=== PATIENT | male | born 1990 | race Caucasian/White ===

== ENCOUNTER → 2018-03-01 09:36 | Outpatient (CLI) | payer BC, SELFPAY ==
--- NOTE | 2018-03-01 09:40 | RAD_ITS ---
STUDY: X-RAY - RIGHT SHOULDER REASON FOR EXAM: Male, 27 years old. Strain injury. TECHNIQUE: 3 view(s) of the shoulder. COMPARISON: None. FINDINGS: Normal glenohumeral articulation. Normal acromioclavicular joint. Normal acromion. Normal humeral head and visualized proximal humerus. The soft tissue structures are unremarkable. Normal visualized pulmonary apex. RAD/Shoulder min 2 Views IMPRESSION: Normal x-ray examination of the left shoulder. Electronically Signed: Sree Browne MD at 10:00 EDT , Service support ,
== END ==
PROVIDERS: Family Provider Family Medicine; PCP Family Medicine; Visit Provider Orthopaedic Surgery
DX: M25.511 Pain in right shoulder (principal)
CPT/HCPCS: 73030

== ENCOUNTER → 2018-03-30 10:20 | Outpatient (CLI) | payer BC, SELFPAY ==
--- NOTE | 2018-03-30 10:20 | DT_ITS ---
This patient was seen during an EMR downtime March 29, 2018 - April 05, 2018. This patient may have a combination of paper and electronic documentation or all paper documentation. All documentation is viewable within the e-chart portion of [facility] for each patient visit.
--- NOTE | 2018-03-30 11:00 | RAD_ITS ---
CLINICAL HISTORY: Male, 27 years old. PROCEDURE: ARTHROGRAM - RIGHT SHOULDER RADIATION DOSAGE (If Supplied By Facility): CTDIvol = ( ) mGy, DLP = ( ) mGycm FLUOROSCOPY TIME (if supplied): (0:34) minutes/seconds Number of images obtained: 2 TECHNIQUE: (All elements of maximal sterile barrier technique followed, including US elements as applicable) RAD/Arthrogram Shoulder w/ MRI IMPRESSION: Normal joint capsule. There is no evidence of intra-articular loose bodies. Electronically Signed: Carlito Carlos MD at 13:02 EDT Tel , Service support ,
--- NOTE | 2018-03-30 11:00 | MRI_ITS ---
STUDY: MRI ARTHROGRAM RIGHT SHOULDER REASON FOR EXAM: Male, 27 years old. Pain. TECHNIQUE: Standardized fat and water weighted pulse sequences were obtained in all 3 orthogonal planes following intra-articular administration of contrast. COMPARISON: X-ray March 01, 2018. FINDINGS: Normal supraspinatus tendon. There is infraspinatus tendinosis with tendon thickening, but without a demonstrated tendon tear. Normal subscapularis tendon. Normal teres minor tendon. Normal supraspinatus muscle. Normal infraspinatus muscle. Normal subscapularis muscle. Normal teres minor muscle. Normal glenohumeral articulation. There is a cortical erosion at the insertion of the infraspinatus tendon. Normal biceps labral complex. Normal intracapsular long biceps tendon. Tear of the superior labrum adjacent to the biceps anchor, series 3 images /20 and 09/14. Normal capsulo- ligamentous complex. Normal rotator interval. Normal acromioclavicular articulation. There is a Type II morphology (curved), with a neutral orientation. There is no subacromial-subdeltoid bursal fluid. Normal visualized coracohumeral and coracoacromial ligaments. Normal quadrilateral space. Normal axillary space. Normal deltoid muscle. Normal trapezius muscle. MRI/Upper Ext Jt Only W/Contrast IMPRESSION: SLAP lesion with tear of the superior labrum. No full-thickness rotator cuff tear. Electronically Signed: Daniel Cee MD at 10:52 EDT , Service support ,
== END ==
PROVIDERS: Family Provider Family Medicine; PCP Family Medicine; Visit Provider Orthopaedic Surgery
DX: M75.111 Incomplete rotator cuff tear or rupture of right shoulder, not specified as traumatic (principal); S43.431A Superior glenoid labrum lesion of right shoulder, initial encounter
CPT/HCPCS: 23350; 73222; 77002; A9577; Q9967

== ENCOUNTER 2018-06-29 07:00 | Outpatient (RCR) | payer BC, SELFPAY ==
--- NOTE | 2018-06-01 12:44 | HP.PTEVAL_ITS ---
Patient's Visit Information CARLTON ROCK is a 27 year old M referred to Physical Therapy by Frankie Younger with a diagnosis of SYNOVITIS AND TENOSYNOVITIS ,RIGHT SHOULDER. Date of Evaluation: 06/01/18 Physical Therapist: Dustin Beck PT, - Visit Plan Frequency: 2x /Week Duration: 4 Weeks Plan: postural ex's ,RTC /scapular ex's program open/chain ,throwing mechanics program ,Thoracic moblity programus/cp for pain - Subjective Subjective: This 27 y/o male presents to physical therapy with right shoulder pain . Patient had pain last summer ,but then had a sharp pain throwing 3rd to 2nd base. Patient has been playing 1st base and typical hitting doesnt increase pain. During regular activity runnning,normal ADL'S and self hygine . Sleeping can affects shoulder pain. Patient seen Dr Deleon initially MRI showed superior labrum tear/suptaspinatius tendonesis. Then patient seen SALVATORE Younger ..recommended MED pack . Denies parathesia/tingling. Patient plays baseball for hobbies. Enjoy rode bike. SOCIAL: single. VOCATION: [employer] - Pain Right Shoulder Pain Intensity (Out of 10): 2 Pain Intensity Range: 10 - Objective POSTURE: rounded shoulders ,type Aromiom. NEURO : intact. PALAPTION: unremarkable. AROM: shoulder flexion/abduction 170 degrees ,ER 90 degree,IR 80 degrees. PROM with OP no pain. MMT:RTC 4/5 infraspinatous/supraspinatous/ subscapularis, deltoid 4/5. middle traps ,lower traps 4-/5 ,posterior deltoid , shoulder extensors 4-/5 - Special Tests R Shoulder External Rotation Lag Test - RC Tear: Negative R Shoulder Supine Impingement Test - RC Tear: Negative R Shoulder Drop Sign - IS Test: Negative R Shoulder Empty Can - SS: Negative R Shoulder Belly Press - SupScap: Negative R Shoulder Neer - Impingement: Negative R Shoulder Garcia Severiano - Impingement: Negative R Shoulder Biceps Load Test - Labrum: Positive R Shoulder Yeargasons - SLAP: Negative R Shoulder Jerk Test - Posterior Inferior Labrum: Negative R Shoulder Apprehension/Relocaton - SLAP: Negative R Shoulder Shrug Sign - OA/Adhesive Capsulitis: Negative - Goals Goal 1:: Independant with HEP Goal Time Frame: 4-6 Weeks Goal 2:: Patient to be 80% or greater with throwing baseball and no pain with general activities . Goal Time Frame: 4-6 Weeks Goal 3:: Patient to RTC 02/27,scapular ex's 01/28 to improve throwing mechanics Goal Time Frame: 4-6 Weeks Goal 4:: Patient be able to perform all function actvities and throwing with min limitations. 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 ,patient has min pain with general activity but throwing baseball have alot of pain ,thus benifit from skilled PT Rehabilitation Potential: Good - Anticipated Interventions Patient/Client Instruction: Educate patient on: Condition, Plan of Care For the Purpose of:: To decrease pain, To increase ROM, To improve muscle performance and motor function, To improve ability to perform ADL's, To increase tolerance to activity/condition/position, To improve ability of physical actions for home/community/work/leisure, To improve health of tissue, To decrease soft tissue restriction, To increase flexibility/ROM, To improve ability to perform tasks related to life management Other: sports Therapeutic Exercise to Include: Strength training, Postural training, Flexibilty training, Scapular Strength/Stabilization Comment: RTC,THORACIC moblity For the Purpose of:: To decrease pain, To increase ROM, To improve muscle performance and motor function, To improve ability to perform ADL's, To increase tolerance to activity/condition/position, To improve ability of physical actions for home/community/work/leisure, To improve health of tissue, To decrease soft tissue restriction, To increase flexibility/ROM, To improve ability to perform tasks related to life management Other: sports baseball TENS: Yes IF ES: Yes Cryotherapy (ice pack, ice massage): Yes Thermo therapy (hot pack): Yes Ultrasound (thermal/non thermal): Yes For the Purpose of:: To decrease pain, To increase ROM, To improve nutrient delivery to tissue, To increase oxygenation perfusion, To improve health of tissue, To decrease soft tissue restriction Thank you for the opportunity to evaluate your patient. For Medicare and Medicare HMO plans, please review the plan of care and approve it. It will need to be FAXED BACK to us at [phone] for Medicare purposes. Please let me know if there are questions or concerns regarding this plan of care. Physician Signature: Date:
--- NOTE | 2018-11-03 13:59 | HP.PTDCSUM ---
HP - PT D/C Summary It has been my pleasure to treat CARLTON ROCK under orders from Frankie Younger PA-C, for the diagnosis of SYNOVITIS AND TENOSYNOVITIS ,RIGHT SHOULDER for a total of 9 visit(s). Discharge Date: Please see the following information for a summary of their discharge status. - Subjective Subjective: Tried throwing cont to have pain - Pain Right Shoulder Pain Intensity (Out of 10): 0 - Overall Improvement % Improvement: 50 - Objective Objective/Function: AROM: 170 Degrees flexion/abd ,ER. MMT: RTC /,LT4-/5,MT /. PAIN WITH THROWIN - Goals Goal 1:: Independant with HEP Goal 2:: Patient to be 80% or greater with throwing baseball and no pain with general activities . Goal 3:: Patient to RTC 02/27,scapular ex's 01/28 to improve throwing mechanics Goal 4:: Patient be able to perform all function actvities and throwing with min limitations. - Plan Plan: RTD - D/C Information If there are questions or concerns regarding this patient's physical therapy, please feel free to call me at [phone]. Thank you for the referral of this patient. Sincerely, Dustin Beck, PT, Cert MDT, OCS
== END 2018-06-29 19:00 | disposition home or self-care (01) ==
LOC: PT 07:00
PROVIDERS: Family Provider Family Medicine; PCP Family Medicine; Visit Provider Physician Assistant
DX: M65.811 Other synovitis and tenosynovitis, right shoulder (principal)
CPT/HCPCS: 97110; 97161

== ENCOUNTER 2019-08-31 07:00 | Outpatient (RCR) | payer BC, SELFPAY ==
--- NOTE | 2019-08-01 09:27 | HP.PTEVAL_ITS ---
Patient's Visit Information CARLTON ROCK is a 28 year old M referred to Physical Therapy by Anita Connors MD with a diagnosis of L groin strain. Date of Evaluation: 08/01/19 Physical Therapist: Kevin Smiley PT, ATC - Visit Plan Frequency: 2x /Week Duration: 3 Weeks Plan: L groin stretching and strengthening, stick and foam rollout, bike, and HEP. - Subjective Findings: Pt reports he strained his L groin while squatting 6 weeks ago. Pt reports he stopped exercising for 2 weeks and the pain greatly reduced by 80 percent, however it hasnt gotten any better now. Pt reports he also has developed pain in the lower abdominal region inferior to his umbelicus. Pt also notes he had pain in his testicles for a short period of time. No L LE tingling or numbness at this time. Pt reports he is limited from any running or jumping exercises at this time. Pt reports he mostly just has stiffness at this time in his L groin region. 2/10 pain at rest, 4/10 at worst.\ - Pain L Groin Pain Intensity (Out of 10): 2 Pain Intensity Range: 4 - Objective Neuro: B LE sensation is WNL to light touch. B patellar reflex= 1/3. ROM: B hips are WNL when compared Bilaterally. MMT: L hip adduction and IR are both 4- /5 and painful with testing. All other LE MMT 5/5 throughout. Flexibility: B LE's are WNL when compared bilaterally. Palpation: Minor tenderness of the L hip adductor muscle group. No obvious deformity. - Goals Goal 1:: Decrease L groin pain x 50% to aid with return to exercise Goal Time Frame: 2-4 Weeks Goal 2:: increase L hip flexibility x 1 grade to aid with decreasing pain Goal Time Frame: 2-4 Weeks Goal 3:: Increase L hip strength x 1 grade to aid with IADL's Goal Time Frame: 2-4 Weeks Goal 4:: I with HEP Goal Time Frame: 2-4 Weeks - Rehabilitation Potential Physical Therapy Diagnosis: Pt has L hip groin pain, weakness, and is limited with exercise secondary to L groin strain Rehabilitation Potential: Good - Anticipated Interventions Patient/Client Instruction: Educate patient on: Condition, Plan of Care For the Purpose of:: To improve self management Therapeutic Exercise to Include: Strength training, Flexibilty training, Active ROM For the Purpose of:: To decrease pain, To improve muscle performance and motor function Thermo therapy (hot pack): Yes Ultrasound (thermal/non thermal): Yes For the Purpose of:: To decrease pain Thank you for the opportunity to evaluate your patient. For Medicare and Medicare HMO plans, please review the plan of care and approve it. It will need to be FAXED BACK to us at [phone] for Medicare purposes. For Medicare only, by signing this I certify the plan of care. Please let me know if there are questions or concerns regarding this plan of care. Physician Signature: Date:__
--- NOTE | 2019-08-31 07:24 | HP.PTDCSUM ---
HP - PT D/C Summary It has been my pleasure to treat CARLTON ROCK under orders from Anita Connors MD, for the diagnosis of L groin strain for a total of 7 visit(s). Discharge Date: Please see the following information for a summary of their discharge status. - Subjective Subjective: Pt reports he did feel better at first, but now he feels like he is back at the starting point. - Pain L Groin Pain Intensity (Out of 10): 4 - Overall Improvement % Improvement: 0 - Objective Objective/Function: L hip pain is 4/10. L hip MMT 5/5 throughout. Pt is still progressing with flexibility. Pt is I with HEP. Pt has progressed with strength but pain is relatively unchanged - Goals Goal 1:: Decrease L groin pain x 50% to aid with return to exercise Goal Progress: Not Progressing Goal 2:: increase L hip flexibility x 1 grade to aid with decreasing pain Goal Progress: Progressing Goal 3:: Increase L hip strength x 1 grade to aid with IADL's Goal Progress: Progressing Goal 4:: I with HEP Goal Progress: Goal Met - Plan Plan: Discontinue, RTD for possible orthopedic referral - D/C Information If there are questions or concerns regarding this patient's physical therapy, please feel free to call me at [phone]. Thank you for the referral of this patient. Sincerely, Kevin Smiley, PT, ATC
== END 2019-08-31 15:38 | disposition home or self-care (01) ==
LOC: PT 07:00
PROVIDERS: Family Provider Family Medicine; PCP Family Medicine; Referring Provider Family Medicine; Visit Provider Family Medicine
DX: S76.8 Injury of other specified muscles, fascia and tendons at thigh level (principal)
CPT/HCPCS: 97110; 97161; 97530

== ENCOUNTER → 2019-09-20 09:54 | Outpatient (CLI) | payer BC, SELFPAY ==
--- NOTE | 2019-09-20 09:54 | RAD_ITS ---
STUDY: X-RAY - PELVIS AND LEFT HIP REASON FOR EXAM: Left hip pain. TECHNIQUE: 2 views of the pelvis and hip. COMPARISON: Radiographs 06/24/2017. FINDINGS: There are pelvic phleboliths. Normal bilateral iliac wings, sacroiliac joints and visualized sacrum. Normal bilateral superior and inferior pubic rami. Normal pubic symphysis. Normal bilateral ischial tuberosities. Normal visualized femoral head. Normal acetabulum. Normal hip joint. There is a small enthesophyte at the lesser trochanter as on the prior study RAD/HIP, UNI W/ Pelvis 2-3 Views IMPRESSION: Small enthesophyte at the lesser trochanter. Otherwise, unremarkable x-ray examination of the pelvis and left hip. Electronically Signed: Anthony Lester MD at 12:12 EST Tel , Service support ,
== END ==
PROVIDERS: Family Provider Family Medicine; PCP Family Medicine; Referring Provider Orthopaedic Surgery; Visit Provider Orthopaedic Surgery
DX: M25.552 Pain in left hip (principal)
CPT/HCPCS: 73502

== ENCOUNTER → 2019-09-20 15:30 | Outpatient (CLI) | payer BC, SELFPAY ==
[2019-09-20 18:40] LABS: HIV - WCH Non-Reactive (Nonreactive)
[2019-09-20 20:50] LABS: Chlamydia Trachomatis by PCR Negative (Negative); Neisserai gonorrhoeae by PCR Negative (Negative); Probe Check PASS; Sample Adequacy Control PASS; Specimen Processing Control PASS
[2019-09-22 01:53] LABS: Rapid Plasmin Reagin (RPR) NONREACTIVE (NONREACTIVE)
== END ==
PROVIDERS: Family Provider Family Medicine; PCP Family Medicine; Referring Provider Family Medicine; Visit Provider Family Medicine
DX: Z20.2 Contact with and (suspected) exposure to infections with a predominantly sexual mode of transmission (principal)
CPT/HCPCS: 36415; 86592; 86703; 87491; 87591

== ENCOUNTER → 2019-10-05 09:53 | Outpatient (CLI) | payer BC, SELFPAY ==
--- NOTE | 2019-10-05 09:57 | RAD_ITS ---
CLINICAL HISTORY: Male, 28 years old. Left hip pain. PROCEDURE: ARTHROGRAM - LEFT HIP CONSENT: The procedure as well as the benefits and possible complications including infection and bleeding which point the patient. Informed consent was obtained. FLUOROSCOPY TIME (if supplied): (45 seconds) minutes/seconds Injection Information: 10 cc of dilute MRI contrast material. Number of images obtained: 1 TECHNIQUE: (All elements of maximal sterile barrier technique followed, including US elements as applicable) The patient was in the supine position. The overlying skin was prepped and draped in usual sterile fashion. Following local anesthetic application and under direct fluoroscopic guidance, a 22-gauge spinal needle was placed into the hip joint. 2 cc of Isovue 300 was injected for confirmation. Following this, 10 cc of dilute MRI contrast was injected. The patient tolerated the procedure well. RAD/Arthrogram Hip w/ MRI IMPRESSION: Successful left hip arthrogram with injection of 10 cc of dilute MRI contrast for MRI examination. The patient tolerated the procedure well. Electronically Signed: Davon Jo, at 12:39 EST , Service support ,
--- NOTE | 2019-10-05 10:19 | MRI_ITS ---
STUDY: MR LEFT HIP ARTHROGRAPHY REASON FOR EXAM: Pain for 3 months after exercise injury. TECHNIQUE: Standardized fat and water weighted pulse sequences were obtained in all 3 orthogonal planes after intra-articular instillation of dilute Dotarem. COMPARISON: Radiographs 09/20/2019. FINDINGS: Normal hip joint without articular joint space narrowing. Normal acetabulum. There is a tear of the anterosuperior labrum (T1 sagittal image 17; GUIDO images 13, 14) and a very small tear of the anterior aspect of the superior labrum (T1 coronal image 13). Normal femoral head. Normal femoral neck and intratrochanteric region. Normal gluteus minimus, medius and iliopsoas tendons and distal insertions. There is no trochanteric, iliopsoas or iliopectineal bursitis. Normal superior and inferior pubic rami. Normal pubic symphysis. Normal ischial tuberosity. Normal origin of the hamstring tendons. Normal visualized iliac wing, sacroiliac joint, and sacral ala. Normal visualized soft tissue structures of the pelvis. MRI/Lower Ext/Jt Only/W Contrast IMPRESSION: Left labral tear. Electronically Signed: Anthony Lester MD at 12:38 EST Tel , Service support ,
== END ==
PROVIDERS: Family Provider Family Medicine; PCP Family Medicine; Referring Provider Orthopaedic Surgery; Visit Provider Orthopaedic Surgery
DX: S73.192A Other sprain of left hip, initial encounter (principal); X58.XXXA Exposure to other specified factors, initial encounter; M25.852 Other specified joint disorders, left hip
CPT/HCPCS: 27093; 73722; 77002; A9575; Q9967